=== PATIENT | female | born 1995 | race Caucasian/White ===

== ENCOUNTER 2019-10-17 08:51 | Outpatient (CLI) | payer OTHER, SELFPAY ==
--- NOTE | 2019-10-17 08:45 | US_ITS ---
WS: [id number] TRANSABDOMINAL FIRST TRIMESTER ULTRASOUND HISTORY: dating-- hx of irregular periods : 2 PARA: 0 COMPARISON: None available. FINDINGS: Cervical length is 3.2 cm; closed. Single live intrauterine . [place] rump length measuring 4.8 cm. 11 weeks 4 days gestation Gestational sac measures 11w4d cm. cardiac tones 164 BPM. Estimated date of delivery 05/03/2020. Right ovary measures 1.8 cm x 2.3 cm x 2.9 cm. Left ovary not visualized. US/US OB <= 14 weeks fetus [id number] IMPRESSION: Interuterine at 11 weeks 4 days gestation Expected date of confinement May 03, 2020
== END 2019-10-17 08:52 | disposition home or self-care (01) ==
PROVIDERS: Visit Provider Nurse Practitioner Women's Health
DX: Z36.87 Encounter for antenatal screening for uncertain dates (principal); Z3A.11 11 weeks gestation of pregnancy; N92.6 Irregular menstruation, unspecified
CPT/HCPCS: 76801; 80053; 80307; 84315; 85027; 86592; 86762; 86803; 86850; 86900; 87340; 87491; 87591; 87806; 88175

== ENCOUNTER → 2019-10-31 11:10 | Outpatient (BNVA) | payer OTHER, SELFPAY | PROVIDERS: Referring Provider Obstetrics & Gynecology; Visit Provider Obstetrics & Gynecology | DX: Z34.91 Encounter for supervision of normal pregnancy, unspecified, first trimester (principal); Z83.3 Family history of diabetes mellitus | CPT/HCPCS: 82950 ==

== ENCOUNTER → 2019-12-19 10:05 | Outpatient (BNVA) | payer OTHER, SELFPAY | PROVIDERS: Visit Provider Obstetrics & Gynecology | DX: Z34.92 Encounter for supervision of normal pregnancy, unspecified, second trimester (principal) | CPT/HCPCS: 76805 ==

== ENCOUNTER → 2020-01-14 14:49 | Outpatient (BNVA) | payer OTHER, SELFPAY | PROVIDERS: Visit Provider Obstetrics & Gynecology | DX: O32.1XX0 Maternal care for breech presentation, not applicable or unspecified (principal); Z3A.25 25 weeks gestation of pregnancy; Z36.89 Encounter for other specified antenatal screening | CPT/HCPCS: 76816 ==

== ENCOUNTER → 2020-01-16 13:07 | Outpatient (BNVA) | payer OTHER, SELFPAY | PROVIDERS: Visit Provider Obstetrics & Gynecology | DX: Z34.90 Encounter for supervision of normal pregnancy, unspecified, unspecified trimester (principal) | CPT/HCPCS: 82950; 84315 ==

== ENCOUNTER → 2020-02-13 10:04 | Outpatient (BNVA) | payer OTHER, SELFPAY | PROVIDERS: Visit Provider Nurse Practitioner Women's Health | DX: O26.899 Other specified pregnancy related conditions, unspecified trimester (principal); R51.9 Headache, unspecified | CPT/HCPCS: 84315; 85027 ==

== ENCOUNTER → 2020-04-06 07:43 | Outpatient (BNVA) | payer OTHER, SELFPAY | PROVIDERS: Visit Provider Obstetrics & Gynecology | DX: Z34.80 Encounter for supervision of other normal pregnancy, unspecified trimester (principal) | CPT/HCPCS: 84315; 87081 ==

== ENCOUNTER → 2020-04-29 11:53 | Outpatient (BNVA) | payer OTHER, SELFPAY | PROVIDERS: Visit Provider Obstetrics & Gynecology | DX: Z01.812 Encounter for preprocedural laboratory examination (principal); Z20.828 Contact with and (suspected) exposure to other viral communicable diseases | CPT/HCPCS: 87635 ==

== ENCOUNTER 2020-05-02 00:47 | Outpatient (CLI) | payer OTHER, SELFPAY ==
[2020-05-02] VITALS (13 sets, daily range): BP systolic 0–144; BP diastolic 0–91; PULSE 54–79; TEMP 36.8; BMI 31.2
--- NOTE | 2020-05-02 17:37 | PM.ACPR ---
Procedure/Consent Procedure Narrative: NONSTRESS TEST: Place of test: [facility] [place]-L&D Indication: 24-year-old 2 para 0-0-1-0 at 39 weeks and 6 days, abdominal pain Date and time of test: 05/02/2020, 1:20 AM Baseline: 125 Variability: Moderate variability Accelerations: Present Decelerations: None Tocometry: Contractions every 3 to 7 minutes INTERPRETATION: NST reactive, continue kick counts
== END 2020-05-02 03:33 | disposition home or self-care (01) ==
LOC: OPOB 00:58 → OBGYN 03:29
PROVIDERS: Visit Provider Obstetrics & Gynecology
DX: O26.899 Other specified pregnancy related conditions, unspecified trimester (principal); Z3A.00 Weeks of gestation of pregnancy not specified; R10.9 Unspecified abdominal pain
CPT/HCPCS: 12345; 59025; 99211

== ENCOUNTER 2020-05-03 18:57 | Inpatient (IN) | payer OTHER, SELFPAY ==
[2020-05-03] VITALS (28 sets, daily range): BP systolic 0–165; BP diastolic 0–97; PULSE 58–80; TEMP 36.6–36.7; BMI 31.1
[2020-05-03] MEDS: lactated ringers 1,000 ML 999 ML IV (20:17)
[2020-05-03 20:30] LABS: Basophils % 0.2 %; Eosinophils # 0.1 10^3/uL (0.0-0.8); Eosinophils % 0.6 %; Hematocrit 37.7 % (37.0-47.0); Hemoglobin 11.9 g/dL (11.5-15.3); Lymphocytes % 23.7 %; Mean Corpuscular HGB Conc 31.6 g/dL (30.0-36.0); Mean Corpuscular Hemoglobin 27.5 pg (28.0-34.0); Mean Corpuscular Volume 87.1 fL (81-99); Mean Platelet Volume 12.7 fL (7.4-10.4); Monocytes # 0.8 10^3/uL (0.2-0.9); Monocytes % 4.8 %; Neutrophils # 11.88 10^3/uL (1.8-7.7); Neutrophils % 70.1 %; Nucleated Red Blood Cells % 0 %; Platelet Count 294 10^3/cmm (130-400); Red Blood Count 4.33 10^6/uL (4.1-5.3); White Blood Count 16.9 10^3/uL (4.0-10.0)
[2020-05-03 20:32] LABS: Chloride 101 mmol/L (98-107); Potassium 3.9 mmol/L (3.5-5.1); Sodium 134 mmol/L (136-145)
[2020-05-03] MEDS: dextrose 5%-lactated ringers 1,000 ML 125 ML IV (20:53)
[2020-05-03 21:09] LABS: Alanine Aminotransferase 9 U/L (0-33); Albumin Level 3.3 g/dL (3.5-5.2); Alkaline Phosphatase 222 IU/L (35-105); Anion Gap 14.9 (5-19); Aspartate Amino Transferase 19 U/L (0-32); Blood Urea Nitrogen 12 mg/dL (6-20); Calcium 9.8 mg/dL (8.5-10.5); Carbon Dioxide 22 mmol/L (22-29); Globulin 3.3 g/dL (1.3-4.6); Glomerular Filtration Rate 101.1 mL/min (90-130); Glucose 92 mg/dL (65-115); Osmolality Calculated 277 mOsm/kg (285-295); Total Bilirubin 0.2 mg/dL (0.15-1.2); Total Protein 6.6 g/dL (6.6-8.7); Uric Acid 4.3 mg/dL (2.4-5.7); Urine Creatinine 163 mg/dL (28-217); Urine Protein Random 16 mg/dL
[2020-05-03] MEDS: miSOPROStol 100 mcg tablet 25 MCG VAGINAL (21:21)
[2020-05-03] MEDS: famotidine 20 mg/2 mL INJ IVP (23:17)
[2020-05-04] VITALS (94 sets, daily range): BP systolic 0–165; BP diastolic 0–85; PULSE 45–118; RESP 16–20; TEMP 36.1–37.2; O2SAT 55–100
[2020-05-04] MEDS: lactated ringers 1,000 ML 999 ML IV ×2 (01:20→05:10)
[2020-05-04] MEDS: fentaNYL 50 mcg/mL INJ 2mL 25 MCG IVP (02:05)
[2020-05-04] MEDS: dextrose 5%-lactated ringers 1,000 ML 125 ML IV ×2 (02:30→13:03)
--- NOTE | 2020-05-04 02:59 | P.ANESASSM_ITS ---
Pre-Anesthetic Assessment Pre-Anesthetic Assessment: Height/Weight: Height 1.8 m Weight 101.151 kg Temp Pulse Resp BP 98.1 F 80 20 H 160/81 05/03/20 21:30 05/04/20 02:48 05/04/20 02:05 05/04/20 02:48 Preop Diagnosis: labor pains Proposed Procedure: epidural Was Beta [place] taken within 24 hours: N/A Social: Social History: No alcohol and No tobacco Exam: Pre-Anes Outpt Exam: alert, oriented x 3, clear to auscultation bilaterally and regular rate & rhythm Airway: Submandibular: WNL Cervical ROM: WNL MP: 2 Dentition: Full Pulmonary: Pulmonary: None reported CV/HEM: CV/HEM: None reported : : None reported Hepatic: Hepatic: None reported GI: GI: None reported Metabolic: Metabolic: None reported Musc/skel: Musc/skel: None reported Neuropsych: Neuropsych: None reported Anesthetic Plan: ASA status: 2 Meds/Allergies Current Medications: Current Medications Generic Name Dose Route Start Last Admin Trade Name Freq PRN Reason Stop Dose Admin Dextrose/Lactated Ringer's 1,000 mls @ 125 m ls/hr 05/03/20 20:15 05/04/20 02:30 Dextrose 5%-Lact ated Ringers IV 125 mls/hr .Q8H RAYMOND Administration Lactated Ringer's 1,000 mls @ 999 m ls/hr 05/03/20 20:04 05/04/20 01:20 Lactated Ringers IV 999 mls/hr .Q1H1M PRN Administration Per L&D Rescitati on Protocol Misoprostol 25 mcg 05/03/20 21:00 05/03/20 21:21 Misoprostol 100 Mcg Tablet VAGINAL 05/04/20 09:01 25 mcg Q4H RAYMOND Administration PFSH Anesthesia PFSH: Medical History (Updated 05/03/20 @ 16:36 by Fox Mccarthy MD) No pertinent past medical history neghx: htn,dm,thyroid,dvt/pe Surgical History H/O oral surgery History of tonsillectomy Family History Sister Diabetes type 2 Grandmother Cancer PGM-- leukemia Family/Other Cancer maternal uncle-- leukemia Denies family history of Colon cancer Ovarian cancer Heart disease Hyperlipidemia Breast cancer Family history of thyroid problem Hypertension Uterine cancer Stroke Social History Smoking and tobacco status: never smoked Alcohol intake: former Former alcohol use details: Social before Female Reproductive History: : 2 Data Anesthesia CBC & Chem 7: 05/03/20 19:50 05/03/20 19:50 Other Labs: Laboratory Results - last 48 hr 05/03/20 05/03/20 05/03/20 19:50 19:50 19:50 WBC 16.9 H RBC 4.33 Hgb 11.9 Hct 37.7 MCV 87.1 MCH 27.5 L MCHC 31.6 RDW 13.0 Plt Count 294 MPV 12.7 H Neut % (Auto) 70.1 Lymph % (Auto) 23.7 [place] % (Auto) 4.8 Eos % (Auto) 0.6 Baso % (Auto) 0.2 Neut # (Auto) 11.88 H Lymph # (Auto) 4.0 [place] # (Auto) 0.8 Eos # (Auto) 0.1 Baso # (Auto) 0.0 Nucleated RBC % (auto) 0 Nucleated RBCs # 0.0 Sodium 134 L Potassium 3.9 Chloride 101 Carbon Dioxide 22 Anion Gap 14.9 BUN 12 Creatinine 0.7 GFR Calculation 101.1 Glucose 92 Calculated Osmolality 277 L Uric Acid 4.3 Calcium 9.8 Total Bilirubin 0.2 AST 19 ALT 9 Alkaline Phosphatase 222 H Total Protein 6.6 Albumin 3.3 L Globulin 3.3 U Random Total Protein 16 Urine Creatinine 163 Protein/Creatinin Ratio 0.10 Cardiac Studies: No Data to Display
--- NOTE | 2020-05-04 03:39 | ANES.PROC ---
Anesthesia Procedures Procedure/Date: 05/04/20 epidural Procedure Narrative: epidural complete, bolus given, epidural pump initiated with LEAF FAT SCRAPER education given, vitals taken during procedure using OBIX system and satisfactory throughout, patient admits to decrease pain, report of procedure to OB RN Epidural: Time Out Performed: Yes Consents Signed: Procedure Consent Consent: requested by attending/covering physician, from patient, risks and benefits reviewed and patient agrees to proceed Lumbar Level: L3-L4 Epidural position: sitting Epidural procedure: sterile prep of area, 1% lidocaine to numb the area (3 mL), 18 g needle, negative for paresthesia passed, neg for paresthesia, test dose given, 1.5% xylocaine 1:200k epi (5 mL), 0.2% Ropivacaine bolus ml (5 mL), placed PCEA, no systemic response, sterile dressing applied, L.U.D. no apparent complications and 0.2% Ropiavacaine @ mls/hr (13 mL/hr)
[2020-05-04] MEDS: metoclopramide 5 mg/mL SDV 2 mL 10 MG IVP (05:09)
[2020-05-04] MEDS: citric acid-sodium citrate 30 mL UDC PO (05:09)
[2020-05-04] MEDS: famotidine 20 mg/2 mL INJ IVP (05:09)
--- NOTE | 2020-05-04 06:59 | PM.OP ---
Operative Report Date of procedure: May 04, 2020 OPERATIVE REPORT Date of surgery: 05/04/2020 Date of dictation: 05/04/2020 Preoperative diagnosis: 24-year-old 2 para 0-0-1-0 at 40 weeks and 1 days gestation, nonreassuring heart tracing-category 2 tracing remote from delivery, thick meconium Postoperative diagnosis/findings: Thick meconium, normal tubes and ovaries bilaterally Procedure done: Primary low transverse delivery via Pfannenstiel incision. Specimens removed/disposition of specimens: Placenta and cord which were discarded Surgeon: Dr. Fox Nicole offset assistant press operator: Shanta Urena Anesthesia: Epidural anesthesia converted to general anesthesia Estimated blood loss: Thousand ml Intravenous fluids: Thousand Urine output: 200 mL of clear urine at the end of procedure Medications: As per anesthesia records Complications: hemorrhage of 1000 mL secondary to lower uterine segment tear INDICATION FOR SURGERY: Ms. Massey is a 24-year-old 2 para 0-0-1-0 at 40 weeks and 0 days who presented to labor and delivery at 7 PM for scheduled elective induction of labor. On initial exam she was noted to be 1 cm, 50% and -3 station. tracing was category 1 and she was having irregular contractions that she did not feel. Blood pressure was a little elevated initially and preeclamptic labs were done and were within normal limits. Induction was started with Cytotec placed at 9:30 PM. Repeat assessment at 1:30 AM on 05/04/2020 showed that she had made some cervical change from 1 cm 50% to 1 cm and 80%. She was however wayne every 2 to 3 minutes and so decision was made to just observe patient. She had a couple of variables/occasional late decelerations which resolved with position change. She had spontaneous rupture of membranes at about 2 AM with thick meconium and was uncomfortable and an epidural was placed. At about 3:30 AM I was called stating that patient had a couple of late decelerations which did resolve with position change and she was noted to be 4 cm 100% and -2 station and the decelerations were thought to be secondary to lap with cervical change in descent. I got a call at 4:15 AM stating that she had a prolonged deceleration lasting for 4 cm at which point he presented to the hospital. Patient at this time was having only occasional contractions every 7 to 8 minutes however had late decelerations with every contraction. Fluid bolus, position change and oxygen were done however no improvement in the decelerations were noted. She was observed for another 45 minutes and made very minimal cervical change to 5 cm 100% and -2 station. Given the persistent category 2 tracing despite intervention and the fact that she was remote from delivery I recommended a and patient agreed. Consents were signed and patient was taken to the operating room. PROCEDURE: After consent was obtained, patient was taken to the operating room where epidural anesthesia was dosed up and it was thought to be. She was placed supine on the table with a left lateral wedge. Martin catheter and SCDs were already in place. Doppler just prior to prepping the patient was in the 100s and decision was made to proceed quickly.. The abdomen was shaved and then prepped with Betadine. She was draped in a sterile fashion. After checking adequacy of anesthesia, a Pfannenstiel incision was made 2 cm above the pubic symphysis. The incision was carried down to the fascia using the Bovie. The fascia was nicked in the midline and the fascial incision was extended laterally bluntly. -When blunt stretching of the abdomen was happening patient started to have a lot of pain and discomfort and anesthesia was notified and they stated to continue surgery and they would try to sedate patient to try to avoid intubation. The rectus muscle was bluntly as was the peritoneum. No adhesions were noted from the uterus to the anterior abdominal wall. The uterus was noted to be rotated to the left. The bladder peritoneum was grasped with smooth forceps a bladder flap was created. the bladder blade was replaced thus protecting the bladder. A LOW TRANSVERSE UTERINE INCISION was made with a scalpel till the amniotic membrane was reached. The uterine incision was then extended laterally using bandage scissors. Amniotomy was done with Allis clamps and thick meconium amniotic fluid was drained. The head head of the baby was brought up to the level of the incision however when fundal pressure was given to help with delivery patient did not tolerate this well and tensed up her abdomen making it hard to deliver the head. Anesthesia was notified and they decided to intubate the patient. Time from skin incision to uterine incision was 1 minute. We then waited 3-1/2 minutes for anesthesia and intubation to be completed. When she was intubated and general anesthesia had taken place the sudden relaxation of the uterus because the head to flip and the breech was the presenting part. The breech was grasped and delivered without any difficulty. The popliteal fossa was reached and with gentle pressure the legs were delivered. The breech and legs were wrapped in a towel and the baby was delivered up to the level of the shoulders. The arms were swept across the chest and delivered and the head followed without any difficulty. The nose and mouth were suctioned, the umbilical cord was clamped and cut and the baby was handed off to the waiting manager mba, Dr. Palmer. The placenta was delivered spontaneously with fundal massage. It was noted to be intact and was discarded. The interior of the uterus was cleaned of all clot and debris and was noted to be wayne well. The uterus was exteriorized. On inspection of the uterine incision there was a 3 to 4 cm extension on the left inferior uterine segment. This was bleeding profusely. This was closed with 0 Vicryl in a continuous interlocking fashion taking care to stay medially. Once this was closed bleeding was better controlled. The uterine incision was closed with 0 Vicryl in a running interlocking manner. Good hemostasis and reapproximation was obtained. Second imbricating layer was done. The abdomen was irrigated and the gutters were cleaned of clot and debris. Normal tubes and ovaries were noted bilaterally. The uterus was placed back into the abdomen and uterine incision was noted to be hemostatic. Surgicel was placed over the uterine incision. The peritoneum was closed with a 2-0 plain in a continuous stitch. The rectus muscle was reapproximated with 2-0 plain suture in a mattress stitch. Good hemostasis was noted in the rectus muscle layer. The fascia was inspected for any defects and none were found and the fascia was closed with 0 Vicryl in continuous stitch. The subcutaneous plane was then irrigated and hemostasis was obtained using the Bovie. The subcutaneous plane was then reapproximated using 2-0 plain suture in a continuous manner. The skin was then closed with 4-0 Monocryl in a subcuticular fashion. Good reapproximation and hemostasis was noted. Steri-Strips were applied. The incision was dressed with Telfa ,ABD and paper tape. The fundus was noted to be firm at the end of the procedure and excess blood was expressed from the vagina. The patient was left to recover in a stable condition. Pre-op Diagnosis: labor pains
--- NOTE | 2020-05-04 07:07 | ANE.PACU2 ---
Inpatient post-anesthesia follow up: Airway intact: Yes Vital signs: Temperature 98.1 F Pulse Rate 86 Respiratory Rate 20 Blood Pressure 0/0 Pulse Oximetry 91 Oxygen Delivery Me thod Room Air Oxygen Flow Rate Fraction of Inspir ed Oxygen Hydration adequate: Yes Nausea and vomiting: No Pain level: 2 Mental status: Baseline Additional Comments: Stat C/S with epidural converted to GETA.
[2020-05-04] MEDS: HYDROcodone-acetaminophen 5-325 mg Tablet PO (07:56)
[2020-05-04] MEDS: HYDROmorphone 1 mg/mL INJ 1 mL 1.5 MG IVP (08:20)
--- NOTE | 2020-05-04 13:43 | PC.NURSE ---
Assisted pt to sit on side of the bed. Pt tolerated well. Assisted pt to stand at bedside. Pt became dizzy and nauseous, pt sat back down. Pt rested a few minutes and wanted to try to get up again. Pt stood up and ambulated to chair. Pt tolerated well.
[2020-05-04] MEDS: ibuprofen 800 mg tablet PO ×2 (15:10→20:58)
[2020-05-04] MEDS: docusate sodium 100 mg Capsule PO (18:02)
[2020-05-04] MEDS: ferrous sulfate EC 325 mg Tablet PO (18:02)
[2020-05-04 19:08] LABS: Hemoglobin 8.6 g/dL (11.5-15.3); Mean Corpuscular HGB Conc 31.9 g/dL (30.0-36.0); Mean Corpuscular Volume 87.9 fL (81-99); Mean Platelet Volume 12.6 fL (7.4-10.4); Platelet Count 227 10^3/cmm (130-400); Red Blood Count 3.07 10^6/uL (4.1-5.3); Red Cell Distribution Width 13.2 % (12.1-15.1); White Blood Count 24.5 10^3/uL (4.0-10.0)
[2020-05-05] VITALS (8 sets, daily range): BP systolic 105–122; BP diastolic 67–80; PULSE 66–98; RESP 16–18; TEMP 36.4–36.7; O2SAT 96–98
[2020-05-05] MEDS: HYDROcodone-acetaminophen 5-325 mg Tablet PO ×2 (01:22→19:25)
--- NOTE | 2020-05-05 07:21 | ANE.PACU2 ---
Inpatient post-anesthesia follow up: Airway intact: Yes Vital signs: Temperature 97.9 F Pulse Rate 74 Respiratory Rate 16 Blood Pressure 105/69 Pulse Oximetry 96 Oxygen Delivery Me thod Room Air Oxygen Flow Rate Fraction of Inspir ed Oxygen Hydration adequate: Yes Nausea and vomiting: No Pain level: 2 Mental status: Baseline Additional Comments: Discussed conversion of epidural to GETA on C/S, patient very understanding.
[2020-05-05] MEDS: docusate sodium 100 mg Capsule PO ×2 (09:18→20:14)
[2020-05-05] MEDS: prenatal vitamin Capsule 1 CAP PO (09:18)
[2020-05-05] MEDS: ibuprofen 800 mg tablet PO ×3 (09:18→20:14)
[2020-05-05] MEDS: ferrous sulfate EC 325 mg Tablet PO ×2 (09:18→20:14)
--- NOTE | 2020-05-05 16:58 | P.PN_ITS ---
Subjective Subjective: Interval history: SUBJECTIVE: Ms. Adame is doing well today. She is a lot less sore and has a lot less pain that she anticipated and she feels pretty good. Has been taking p.o. pain medication which has been helping her discomfort. Initially she was a little lightheaded when she was ambulating however no longer has these problems and has been ambulating well. She has passed flatus and has voided after removal of Martin catheter and overall feels pretty good. She is not breast-feeding and just plans on bottlefeeding. She has no other questions or concerns and states that vaginal bleeding is minimal. Denies any depressive symptoms and is bonding well with her son. She would like to have him circumcised. OBJECTIVE/PHYSICAL EXAM: Gen.: No acute distress Heart: S1-S2 heard, regular rate and rhythm Lungs: Clear to auscultation bilaterally Abdomen: Soft, fundus firm below umbilicus, tenderness around incision. Incision: Clean dry and intact with Steri-Strips. Legs: No calf tenderness, trace bilateral pitting pedal edema. ASSESSMENT AND PLAN: 24-year-old 1 para 1 status post primary low transverse delivery for nonreassuring heart tracing, postoperative day #1 -Continue routine postoperative care-encourage ambulation and p.o. pain medication -Incision appears clean dry and intact with Cmjoq-Uaqnnq-[id number] care reviewed -Circumcision discussed and consent signed we will plan to do circumcision today -Patient had hemorrhage from lower uterine segment tear and hemoglobin is 8.6. Orthostatics this morning is negative. Plan to repeat CBC to follow both white count and hemoglobin tomorrow at 4 AM. -As long as she continues to do well anticipate discharge home tomorrow. -Continue regular diet, ambulation and current care Vitals/I&O/Wt Last Vital Signs Temp 97.6 F 05/05/20 10:14 Pulse 91 05/05/20 10:14 Resp 18 05/05/20 10:14 BP 122/80 05/05/20 10:14 Pulse Ox 96 05/05/20 04:55 05/05/20 05/05/20 05/05/20 06:59 14:59 22:59 Output Total 600 / 3800 Balance -600 / -837.083 Weight last 48 hrs Weight 223 lb Physical Exam Urinary Catheter Management^: Martin: Cath Placed During This Visit: yes, but has since been removed by the nurse Reason for Continuing Indwelling Catheter: Decision to DC Catheter Urinary Catheter Date of Insertion: 05/04/20 Urinary Catheter Time of Insertion: 03:45 Date Urinary Catheter Removed: 05/04/20 Time Urinary Catheter Discontinued: 18:30 Data : 05/04/20 18:15 05/03/20 19:50 Attestations Medical Necessity Statement*: Patient has to stay overnight for 1 or 2 more midnights to recover from surgery Coding Level of Care Code Acute Metal Sander And Finisher for Andrea Martin
[2020-05-06] MEDS: HYDROcodone-acetaminophen 5-325 mg Tablet PO (01:50)
[2020-05-06 04:10] LABS: Basophils % 0.2 %; Eosinophils # 0.3 10^3/uL (0.0-0.8); Eosinophils % 1.8 %; Hematocrit 23.1 % (37.0-47.0); Hemoglobin 7.1 g/dL (11.5-15.3); Lymphocytes # 3.4 10^3/uL (0.8-4.8); Lymphocytes % 20.7 %; Mean Corpuscular HGB Conc 30.7 g/dL (30.0-36.0); Mean Corpuscular Volume 90.9 fL (81-99); Monocytes # 1.2 10^3/uL (0.2-0.9); Monocytes % 7.2 %; Neutrophils # 11.33 10^3/uL (1.8-7.7); Neutrophils % 69.1 %; Nucleated Red Blood Cells % 0 %; Platelet Count 214 10^3/cmm (130-400); Red Blood Count 2.54 10^6/uL (4.1-5.3); Red Cell Distribution Width 13.6 % (12.1-15.1); White Blood Count 16.4 10^3/uL (4.0-10.0)
[2020-05-06 04:55] VITALS: BP 124/79; PULSE 67; RESP 15; TEMP 36.7; O2SAT 100
[2020-05-06] MEDS: prenatal vitamin Capsule 1 CAP PO (08:34)
[2020-05-06] MEDS: docusate sodium 100 mg Capsule PO (08:34)
[2020-05-06] MEDS: ferrous sulfate EC 325 mg Tablet PO (08:35)
[2020-05-06] MEDS: ibuprofen 800 mg tablet PO ×2 (08:35→14:49)
[2020-05-06 11:32] VITALS: BP 143/84; PULSE 96; RESP 16; TEMP 37; O2SAT 98
--- NOTE | 2020-05-06 13:32 | P.DS_ITS ---
Discharge Providers Date of Admission: 05/03/20 18:57 Date of Discharge: May 06, 2020 Attending Provider at Admission: Fox Mccarthy MD Attending Provider at Discharge: Fox Mccarthy MD Reason for Visit Reason for Visit: induction Brief History: Admission diagnosis: 24-year-old 2 para 0-0-1-0 at 40 weeks and 0 days Elective induction of labor Category 2 tracing Thick meconium Discharge diagnosis: Anemia-acute blood loss Status post primary delivery INDICATION FOR SURGERY: Ms. Adame is a 24-year-old 2 para 0-0-1-0 at 40 weeks and 0 days who presented to labor and delivery at 7 PM for scheduled elective induction of labor. On initial exam she was noted to be 1 cm, 50% and -3 station. tracing was category 1 and she was having irregular contractions that she did not feel. Blood pressure was a little elevated initially and preeclamptic labs were done and were within normal limits. Induction was started with Cytotec placed at 9:30 PM. Repeat assessment at 1:30 AM on 05/04/2020 showed that she had made some cervical change from 1 cm 50% to 1 cm and 80%. She was however wayne every 2 to 3 minutes and so decision was made to just observe patient. She had a couple of variables/occasional late decelerations which resolved with position change. She had spontaneous rupture of membranes at about 2 AM with thick meconium and was uncomfortable and an epidural was placed. At about 3:30 AM I was called stating that patient had a couple of late decelerations which did resolve with position change and she was noted to be 4 cm 100% and -2 station and the decelerations were thought to be secondary to lap with cervical change in descent. I got a call at 4:15 AM stating that she had a prolonged deceleration lasting for 4 cm at which point he presented to the hospital. Patient at this time was having only occasional contractions every 7 to 8 minutes however had late decelerations with every contraction. Fluid bolus, position change and oxygen were done however no improvement in the decelerations were noted. She was observed for another 45 minutes and made very minimal cervical change to 5 cm 100% and -2 station. Given the persistent category 2 tracing despite intervention and the fact that she was remote from delivery I recommended a and patient agreed. Consents were signed and patient was taken to the operating room. HOSPITAL COURSE: She underwent an delivery on 05/04/2020-please refer to operative report for details. She did well on day 0 and was ambulating well, tolerating regular diet, voiding freely. She was bottlefeeding without difficulty and bonding well with her son. Circumcision was performed on day of life 1 per her request without any difficulty.. Pain was well-controlled with by mouth pain medication. She denied nausea, vomiting, fever, chills, shortness of breath, leg pain. She had moderate vaginal bleeding. On day # 1 she continued to do well with stable vital signs and stable hemoglobin at 8.6. Orthostatics were negative and although she did have dizziness on initial ambulation tomorrow she ambulated she remained asymptomatic without chest pain, nausea, vomiting. She continued to do well on postoperative day #2 and repeat hemoglobin sure that her white count was returning to normal and hemoglobin was 7.1.Blood transfusion was discussed and she declined this as she was asymptomatic. She was discharged home on day 2 in a stable condition, as she desired early discharge. Warning signs for endometritis, mastitis, DVT/PE were reviewed with her. Post delivery activity restrictions were also reviewed with her at all her questions were answered to her satisfaction. She is not quite sure about what she wants to use for contraception and is considering condoms. EXAM AT DISCHARGE: Gen.: No acute distress Heart: S1-S2 heard, regular rate and rhythm Lungs: Clear to auscultation bilaterally Abdomen: Soft, fundus firm below umbilicus, tenderness around incision. Incision: Clean dry and intact with Steri-Strips. Legs: No calf tenderness, trace bilateral pitting pedal edema. CONDITION AT DISCHARGE: Stable Physical Exam Urinary Catheter Management^: Martin: Cath Placed During This Visit: yes, but has since been removed by the nurse Reason for Continuing Indwelling Catheter: Decision to DC Catheter Urinary Catheter Date of Insertion: 05/04/20 Urinary Catheter Time of Insertion: 03:45 Date Urinary Catheter Removed: 05/04/20 Time Urinary Catheter Discontinued: 18:30 Discharge Data Data Completed and Pending: Labs from last 24 hours 05/06/20 03:55 WBC 16.4 H RBC 2.54 L Hgb 7.1 L Hct 23.1 L MCV 90.9 MCH 28.0 MCHC 30.7 RDW 13.6 Plt Count 214 MPV 12.0 H Neut % (Auto) 69.1 Lymph % (Auto) 20.7 [place] % (Auto) 7.2 Eos % (Auto) 1.8 Baso % (Auto) 0.2 Neut # (Auto) 11.33 H Lymph # (Auto) 3.4 [place] # (Auto) 1.2 H Eos # (Auto) 0.3 Baso # (Auto) 0.0 Nucleated RBC % (a uto) 0 Nucleated RBCs # 0.0 Vitals: Last Vital Signs Temp 98.6 F 05/06/20 11:32 Pulse 96 05/06/20 11:32 Resp 16 05/06/20 11:32 BP 143/84 05/06/20 11:32 Pulse Ox 98 05/06/20 11:32 Discharge Plan Discharge Patient Disposition: Home Condition: Stable Prescriptions: New hydrocodone-acetaminophen 5-325 mg tablet 1 tab PO Q6H Qty: 25 RF: 0 docusate sodium 100 mg Capsule 100 mg PO BID PRN (Reason: constipation) Qty: 30 RF: 0 ferrous sulfate 325 mg (65 mg iron) tablet 325 mg PO BID Qty: 30 RF: 0 ibuprofen 800 mg tablet 800 mg PO Q8H Qty: 30 RF: 0 Continued prenat.vits,elyssa,uga-jyzk-nopyx Tablet 1 tab PO DAILY RF: 0 Discontinued acetaminophen [Tylenol] 325 mg capsule 325 mg PO QID PRNRF: 0 Discharge Orders: Discharge Order (Routine); Ordered 05/06/20 Ordered By: Fox Mccarthy Referrals: Fox Mccarthy MD [Physician] - 05/17/20 10:15 am (Incision check is May 17, 2020 at [address] Nicole appt is Jun 15, [address] Hay.) Patient Instructions: Pre-eclampsia and Eclampsia (DC), Bleeding (DC), OB [facility], OB Discharge Report, OB Anesthesia Instructions, OB Food/Drug Interaction Guide, OB Home Care, OB Proud Parent Packet Activity Restrictions/Additional Instructions: Pelvic rest for 6 weeks, no heavy lifting for 6 weeks Discharge Attestations Time Spent in Discharge Care*: greater than 30 min Quality Metrics Clinical Quality Measures During this hospital stay, did patient experience: None Coding Level of Care Code Acute Quality Assurance Supervisor Trim for Andrea Martin
[2020-05-06 14:45] VITALS: BP 128/85; PULSE 87; RESP 18; TEMP 36.9; O2SAT 99
== END 2020-05-06 15:10 | disposition home or self-care (01) | DRG 787 ==
PROVIDERS: Admitting Provider Obstetrics & Gynecology; Visit Provider Obstetrics & Gynecology
PROC: (CPT 59514; principal; 2020-05-04 05:15)
DX: O77.0 Labor and delivery complicated by meconium in amniotic fluid (principal); D62 Acute posthemorrhagic anemia; Z3A.40 40 weeks gestation of pregnancy; Z37.0 Single live birth; O76 Abnormality in fetal heart rate and rhythm complicating labor and delivery; O90.81 Anemia of the puerperium
CPT/HCPCS: 12345; 36415; 51702; 59025; 59409; 80053; 82570; 84156; 84315; 84550; 85025; 85027; G0378; J0330; J1170; J2274; J2704; J2765; J2795; J3010; J3490; J7030

== ENCOUNTER → 2020-06-18 14:54 | Outpatient (BNVA) | payer OTHER, SELFPAY | PROVIDERS: Visit Provider Obstetrics & Gynecology | DX: Z30.017 Encounter for initial prescription of implantable subdermal contraceptive (principal) | CPT/HCPCS: 81025 ==